=== PATIENT | male | born 1985 | race Caucasian/White ===

== ENCOUNTER 2018-10-08 22:56 | Emergency (ER) | payer OTHER ==
[~2018-10-08] VITALS: Ht 198.1 cm; Wt 133.4 kg
[2018-10-08] MEDS ORDERED: IBU400 MG PO (23:10)
[2018-10-08] MEDS ORDERED: KEFLEX500 MG PO (23:27)
== END 2018-10-08 23:37 | disposition home or self-care (01) ==
LOC: ED 22:56
DX: H66.92 Otitis media, unspecified, left ear (principal); F17.200 Nicotine dependence, unspecified, uncomplicated; Z88.0 Allergy status to penicillin
CPT/HCPCS: 99282

== ENCOUNTER 2019-05-21 07:26 | Emergency (ER) | payer OTHER ==
[~2019-05-21] VITALS: Ht 198.1 cm; Wt 133.4 kg
--- OUTSIDE RECORDS SUMMARY | ~2019-05-21 | XMS | Clinical Summary ---
Demographics + + + | Address | [address] | | | [place] [address] | + + + | Home Phone | | + + + | Preferred Language | Unknown | + + + | Marital Status | Unknown | + + + | Congregational Affiliation | Unknown | + + + | Race | Unknown | + + + | Ethnic Group | Unknown | + + + Author + + + | Author | [facility] (Historical as of | | | 03-04-19) | + + + | Organization | [facility] (Historical as of | | | 03-04-19) | + + + | Address | Unknown | + + + | Phone | Unavailable | + + + Support + + +---------+ + | Name | Relationship | Address | Phone | + + +---------+ + | Detail,Message | ECON | Unknown | | + + +---------+ + Care Team Providers + +------+ + | Care Clinical Ob Name | Role | Phone | + +------+ + PP | Unavailable | + +------+ + Allergies Not on File Current Medications Not on file Active Problems Not on file Social History + +-------+ +--------+------+ | Tobacco Use | Types | Packs/Day | Years | Date | | | | | Used | | + +-------+ +--------+------+ | Never Assessed | | | | | + +-------+ +--------+------+ + + + | Sex Assigned at | Date Recorded | | | | + + + | Not on file | | + + + Plan of Treatment + + + + + | Health Maintenance | Due Date | Last Done | Comments | + + + + + | Vaccine: | | | | | Dtap/Tdap/Td (1 - | 6 | | | | Tdap) | | | | + + + + + | Vaccine: Influenza | | | | | (#1) | 9 | | | + + + + + Results Not on filefrom Last 3 Months"
--- OUTSIDE RECORDS SUMMARY | ~2019-05-21 | XMS | Clinical Summary ---
Demographics + + + | Address | [address] | | | [place] [address] | + + + | Home Phone | | + + + | Preferred Language | Unknown | + + + | Marital Status | Unknown | + + + | Temple Affiliation | Unknown | + + + | Race | Unknown | + + + | Ethnic Group | Unknown | + + + Author + + + | Author | [facility] (Historical as of | | | 03-04-19) | + + + | Organization | [facility] (Historical as of | | | 03-04-19) [...] Team Providers + +------+ + | Care Quality Control Operator Name | Role | Phone | + [...]
[~2019-05-21 07:26] MED LIST: DIAZEPAM5 MG PO; IBU400 MG PO; KEFLEX500 MG PO
[2019-05-21] MEDS ORDERED: ROBAXIN-750750 MG PO (08:02)
== END 2019-05-21 08:18 | disposition home or self-care (01) ==
LOC: ED 07:26
DX: S29.012A Strain of muscle and tendon of back wall of thorax, initial encounter (principal); F17.200 Nicotine dependence, unspecified, uncomplicated; Z88.0 Allergy status to penicillin; X50.0XXA Overexertion from strenuous movement or load, initial encounter
CPT/HCPCS: 99283; A9270

== ENCOUNTER 2019-08-18 22:16 | Emergency (ER) | payer OTHER ==
[~2019-08-18] VITALS: Ht 198.1 cm; Wt 133.4 kg
[~2019-08-18 22:16] MED LIST changes: +ROBAXIN-750750 MG PO
== END 2019-08-18 23:58 | disposition home or self-care (01) ==
LOC: ED 22:16
DX: S50.01XA Contusion of right elbow, initial encounter (principal); Y04.8XXA Assault by other bodily force, initial encounter; F17.200 Nicotine dependence, unspecified, uncomplicated; Z88.0 Allergy status to penicillin
CPT/HCPCS: 73080; 90471; 90715; 99283-25

== ENCOUNTER 2021-01-25 17:57 | Emergency (ER) | payer OTHER ==
[~2021-01-25] VITALS: Ht 198.1 cm; Wt 133.4 kg
[2021-01-25] MEDS ORDERED: NAPROSYN500 MG PO (18:23)
[2021-01-25] MEDS ORDERED: WELLBUTRIN SR100 MG PO (18:24)
[2021-01-25] MEDS ORDERED: ZOLOFT100 MG PO (18:25)
[2021-01-25] MEDS ORDERED: CYCLOBENZAPRINE10 MG PO (19:05)
== END 2021-01-25 19:24 | disposition home or self-care (01) ==
LOC: ED 17:57
DX: M54.5 Low back pain (principal); G89.29 Other chronic pain; Z88.0 Allergy status to penicillin; Z79.899 Other long term (current) drug therapy
CPT/HCPCS: 99283